=== PATIENT | male | born 1940 | race Asian ===

== ENCOUNTER 2016-09-04 18:43 | Emergency (ER) | payer OTHER ==
[~2016-09-04] VITALS: Ht 177.8 cm; Wt 59.1 kg
[2016-09-04] MEDS ORDERED: DIOVAN 40MG40 MG PO (18:57)
[2016-09-04 19:16] LABS: BASO % 0.5 % (0.0-2.0); EOS % 0.2 % (0-4.0); GRAN # 7.3 (1.4-6.5); GRAN % 83.7 % (42.2-75.2); HEMATOCRIT 39.5 % (42.0-52.0); HEMOGLOBIN 13.3 g/dl (13.5-18.0); LYMPH # 0.7 (1.2-3.4); MEAN CELL VOLUME 95 fl (80.0-100.0); MEAN CORPUSCULAR HEMOGLOBIN 32 pg (27.0-31.0); MEAN CORPUSCULAR HGB CONC 34 g/dl (33.0-37.0); MEAN PLATELET VOLUME 9.3 fl (7.4-10.4); MONO # 0.6 (0.1-0.6); MONO % 7.4 % (1.7-9.3); PLATELET COUNT 210 K/mm3 (130-400); RED BLOOD COUNT 4.17 M/mm3 (4.20-5.60); REDCELL DISTRIBUTION WIDTH-CV 13.2 % (11.5-14.5); WHITE BLOOD COUNT 8.7 K/mm3 (4.8-10.8)
[2016-09-04 19:24] LABS: INR 1.2 (0.8-3.0); PROTHROMBIN TIME 12.9 SECONDS (9.7-12.8)
[2016-09-04 19:25] LABS: PH 7 (5-8); SQUAMOUS EPITHELIAL None Seen /hpf; URINE APPEARANCE Clear; URINE BACTERIA None Seen /hpf; URINE BILIRUBIN Negative (NEGATIVE); URINE BLOOD Negative (NEGATIVE); URINE COLOR Yellow; URINE GLUCOSE 2+ (NEGATIVE); URINE KETONE Negative (NEGATIVE); URINE UROBILINOGEN Negative (NEGATIVE); URINE WBC 0-2 /hpf
[2016-09-04 19:34] LABS: ADJUSTED CALCIUM 8.5 mg/dL (8.4-10.2); ALANINE AMINOTRANSFERASE 20 U/L (21-72); ALBUMIN 4.1 gm/dL (3.5-5.0); ALKALINE PHOSPHATASE 65 U/L (50-136); ANION GAP 14 mmol/L (7-16); BILIRUBIN,TOTAL 0.8 mg/dL (0.0-1.0); BLOOD UREA NITROGEN 29 mg/dL (9-20); CALCIUM 8.6 mg/dL (8.4-10.2); CARBON DIOXIDE 25 mmol/L (22-30); CHLORIDE 100 mmol/L (98-107); CREATININE, serum 1.39 mg/dL (0.66-1.25); GLUCOSE 126 mg/dL (74-106); LIPASE 61 U/L (23-300); POTASSIUM 4.1 mmol/L (3.4-5.0); SODIUM 139 mmol/L (137-145); TOTAL PROTEIN 7.6 gm/dL (6.4-8.2)
[2016-09-04 19:36] LABS: INFLUENZA B NEGATIVE
[2016-09-04 19:45] LABS: B-TYPE NATRIURETIC PEPTIDE 1350 pg/mL (0-450); TROPONIN-I < 0.012 ng/mL (0.000-0.034)
[2016-09-04] MEDS ORDERED: LEVAQUIN 750MG750 M1 PO (20:40)
[2016-09-04 21:15] VITALS: BP 119/84; PULSE 100; TEMP 99.2
== END 2016-09-04 21:30 | disposition home or self-care (01) ==
LOC: COL.ER 18:43
PROVIDERS: Emergency Medicine
DX: R50.9 Fever, unspecified (principal); R05 Cough; R53.1 Weakness; E11.9 Type 2 diabetes mellitus without complications; I10 Essential (primary) hypertension; R00.0 Tachycardia, unspecified
CPT/HCPCS: J7030

== ENCOUNTER 2016-11-11 11:16 | Emergency (ER) | payer OTHER ==
[~2016-11-11] VITALS: Ht 177.8 cm; Wt 68.2 kg
[~2016-11-11 11:16] MED LIST: DIOVAN 40MG40 MG PO; LEVAQUIN 750MG750 M1 PO
[2016-11-11 11:26] VITALS: BP 146/73; TEMP 98.2
[2016-11-11] MEDS ORDERED: DIOVAN 80MG80 MG PO (11:56)
[2016-11-11] MEDS ORDERED: ZYRTEC 10MG10 MG PO (11:57)
[2016-11-11 12:11] LABS: BASO # 0.1 (0.0-0.2); BASO % 0.7 % (0.0-2.0); EOS # 0.2 (0.0-0.7); EOS % 1.8 % (0-4.0); GRAN # 5.7 (1.4-6.5); GRAN % 70.2 % (42.2-75.2); HEMATOCRIT 33.3 % (42.0-52.0); HEMOGLOBIN 11.1 g/dl (13.5-18.0); LYMPH # 1.4 (1.2-3.4); LYMPH % 17.5 % (20.0-51.0); MEAN CELL VOLUME 98 fl (80.0-100.0); MEAN CORPUSCULAR HEMOGLOBIN 33 pg (27.0-31.0); MEAN CORPUSCULAR HGB CONC 33 g/dl (33.0-37.0); MEAN PLATELET VOLUME 9.5 fl (7.4-10.4); MONO # 0.8 (0.1-0.6); MONO % 9.6 % (1.7-9.3); PLATELET COUNT 352 K/mm3 (130-400); RED BLOOD COUNT 3.41 M/mm3 (4.20-5.60); REDCELL DISTRIBUTION WIDTH-CV 13.5 % (11.5-14.5); WHITE BLOOD COUNT 8.1 K/mm3 (4.8-10.8)
[2016-11-11 12:25] LABS: ADJUSTED CALCIUM 8.8 mg/dL (8.4-10.2); ALBUMIN 3.6 gm/dL (3.5-5.0); BILIRUBIN,TOTAL 0.7 mg/dL (0.0-1.0); C-REACTIVE PROTEIN 2.2 mg/dL (0.0-0.9); CALCIUM 8.5 mg/dL (8.4-10.2); CREATININE, serum 1.36 mg/dL (0.66-1.25); POTASSIUM 4.3 mmol/L (3.4-5.0)
[2016-11-11 13:34] VITALS: PULSE 72
== END 2016-11-11 13:35 | disposition home or self-care (01) ==
LOC: COL.ER 11:16
PROVIDERS: Emergency Medicine
DX: G56.03 Carpal tunnel syndrome, bilateral upper limbs (principal); D64.9 Anemia, unspecified; N19 Unspecified kidney failure; E11.9 Type 2 diabetes mellitus without complications; I10 Essential (primary) hypertension

== ENCOUNTER 2016-11-11 15:03 | Emergency (ER) | payer OTHER ==
[~2016-11-11] VITALS: Ht 177.8 cm; Wt 63.6 kg
[~2016-11-11 15:03] MED LIST changes: +DIOVAN 80MG80 MG PO; +ZYRTEC 10MG10 MG PO
[2016-11-11 15:04] VITALS: TEMP 98.3
[2016-11-11 16:48] LABS: INR 1.2 (0.8-3.0); PROTHROMBIN TIME 13.5 SECONDS (9.7-12.8)
[2016-11-11 16:50] LABS: PARTIAL THROMBOPLASTIN TIME 30.9 SECONDS (26.0-37.0)
[2016-11-11 17:21] VITALS: BP 175/86; PULSE 76
== END 2016-11-11 17:24 | disposition short-term general hospital (02) ==
LOC: COL.ER 15:03
PROVIDERS: Emergency Medicine
DX: I62.00 Nontraumatic subdural hemorrhage, unspecified (principal); I10 Essential (primary) hypertension; Z87.891 Personal history of nicotine dependence
CPT/HCPCS: J7030

== ENCOUNTER → 2016-11-28 | Outpatient (CLI) | payer OTHER | LOC: COL.RAD 09:59 | DX: S06.5X0A Traumatic subdural hemorrhage without loss of consciousness, initial encounter (principal); G93.89 Other specified disorders of brain ==

== ENCOUNTER 2018-02-09 11:42 | Observation (INO) | payer MEDICARE, MEDICAID ==
[~2018-02-09] VITALS: Ht 175.3 cm; Wt 70.0 kg
[2018-02-09] MEDS ORDERED: SYNTHROID0.05 MG/TA PO (12:15)
[2018-02-09] MEDS ORDERED: NORVASC 10MG10 MG PO (12:16)
[2018-02-09 12:21] LABS: BASO # 0.1 (0.0-0.2); EOS # 0.2 (0.0-0.7); EOS % 2.2 % (0-4.0); GRAN # 4.6 (1.4-6.5); GRAN % 68.1 % (42.2-75.2); HEMATOCRIT 39.3 % (42.0-52.0); HEMOGLOBIN 13.4 g/dl (13.5-18.0); LYMPH # 1.4 (1.2-3.4); LYMPH % 21.3 % (20.0-51.0); MEAN CELL VOLUME 94 fl (80.0-100.0); MEAN CORPUSCULAR HEMOGLOBIN 32 pg (27.0-31.0); MEAN CORPUSCULAR HGB CONC 34 g/dl (33.0-37.0); MEAN PLATELET VOLUME 9.1 fl (7.4-10.4); MONO # 0.5 (0.1-0.6); MONO % 7.1 % (1.7-9.3); PLATELET COUNT 266 K/mm3 (130-400); RED BLOOD COUNT 4.17 M/mm3 (4.20-5.60); REDCELL DISTRIBUTION WIDTH-CV 13.5 % (11.5-14.5)
[2018-02-09 12:36] LABS: PROTHROMBIN TIME 11.1 SECONDS (9.7-12.8)
[2018-02-09 12:38] LABS: ALBUMIN 4.1 gm/dL (3.5-5.0); BILIRUBIN,TOTAL 0.5 mg/dL (0.0-1.0); CREATININE, serum 1.09 mg/dL (0.66-1.25); POTASSIUM 4.3 mmol/L (3.4-5.0); TOTAL PROTEIN 7.5 gm/dL (6.4-8.2)
[2018-02-09 16:49] VITALS: BP 135/77; PULSE 69; TEMP 98.5
[2018-02-09 17:00] VITALS: BP 135/77; PULSE 69; TEMP 98.5
[2018-02-09 20:00] VITALS: BP 168/82; PULSE 60; TEMP 97.6
[2018-02-10 00:53] VITALS: BP 160/70; PULSE 57
[2018-02-10 04:07] VITALS: BP 154/67; PULSE 68
[2018-02-10 07:27] LABS: CALCIUM 8.9 mg/dL (8.4-10.2); CHOLESTEROL RISK RATIO 4.2; CREATININE, serum 1.01 mg/dL (0.66-1.25); POTASSIUM 3.9 mmol/L (3.4-5.0)
[2018-02-10 07:54] VITALS: BP 155/69; PULSE 62; TEMP 97.9
[2018-02-10 08:43] LABS: THYROXINE (T4)-TOTAL 10.7 ug/dL (5.5-11.0)
[2018-02-10 08:56] LABS: THYROID STIMULATING HORMONE 1.76 uIU/mL (0.465-4.680)
[2018-02-10 12:02] VITALS: BP 157/72; PULSE 61; TEMP 97.9
[2018-02-10 15:51] VITALS: BP 154/62; PULSE 70; TEMP 97.9
[2018-02-10 19:51] VITALS: BP 146/81; PULSE 65; TEMP 98.4
[2018-02-11] VITALS (7 sets, daily range): BP systolic 135–182; BP diastolic 56–84; PULSE 59–66; TEMP 97.3–98.9
[2018-02-12 00:59] VITALS: BP 161/70
[2018-02-12 04:52] VITALS: BP 137/64; PULSE 72; TEMP 97.9
[2018-02-12 09:00] VITALS: BP 150/69; PULSE 67; TEMP 97.9
[2018-02-12 10:57] VITALS: BP 153/75; PULSE 68; TEMP 98.5
[2018-02-12] MEDS ORDERED: ASPIRIN 81M81 MG/TA2 PO (11:28)
[2018-02-12] MEDS ORDERED: LIPITOR 10MG10 MG PO (11:28)
== END 2018-02-12 15:22 | disposition home or self-care (01) ==
LOC: COL.ER 11:42 → MEDICAL 13:01
PROVIDERS: Emergency Medicine; Family Medicine; Psychiatry & Neurology Neurology
DX: I63.232 Cerebral infarction due to unspecified occlusion or stenosis of left carotid arteries (principal); G83.11 Monoplegia of lower limb affecting right dominant side; I10 Essential (primary) hypertension; I71.4 Abdominal aortic aneurysm, without rupture; E03.9 Hypothyroidism, unspecified; Z79.899 Other long term (current) drug therapy; Z86.79 Personal history of other diseases of the circulatory system
CPT/HCPCS: G0378; G8978-GP; G8979-GP; G8996-GN; G8997-GN; Q9967

== ENCOUNTER 2018-03-13 10:15 | Outpatient (RCR) | payer MEDICARE, MEDICAID ==
[~2018-03-13 10:15] MED LIST changes: +ASPIRIN 81M81 MG/TA2 PO; +LIPITOR 10MG10 MG PO; +NORVASC 10MG10 MG PO; +SYNTHROID0.05 MG/TA PO
== END 2018-03-13 10:20 | disposition home or self-care (01) ==
LOC: WSOT 10:15
DX: I69.351 Hemiplegia and hemiparesis following cerebral infarction affecting right dominant side (principal)
CPT/HCPCS: G8987-GO; G8988-GO

== ENCOUNTER 2018-03-13 10:45 | Outpatient (RCR) | payer MEDICARE, MEDICAID | END 2018-03-13 12:41 | disposition home or self-care (01) | LOC: WSPT 10:45 | DX: I69.341 Monoplegia of lower limb following cerebral infarction affecting right dominant side (principal); Z79.82 Long term (current) use of aspirin; Z79.899 Other long term (current) drug therapy | CPT/HCPCS: G8978-GP; G8979-GP ==

== ENCOUNTER 2018-05-16 16:22 | Outpatient (RCR) | payer MEDICARE, MEDICAID | END 2018-08-14 | disposition home or self-care (01) | LOC: WSST 16:22 → MKS.ESL.OT 06-01 14:30 → WSST 06-04 10:30 → MKS.ESL.PT 06-08 11:15 → WSST 06-13 10:30 → MKS.ESL.PT 06-15 09:30 → WSST 06-18 12:45 → MKS.ESL.PT 06-22 12:45 → WSST 06-28 13:45 → MKS.ESL.PT 06-29 14:30 → WSST 07-02 13:45 → MKS.ESL.PT 07-06 14:30 → WSST 07-09 11:15 → MKS.ESL.PT 07-13 13:00 → WSST 07-19 13:45 → MKS.ESL.PT 07-20 15:00 → WSST 07-26 13:00 | DX: R13.12 Dysphagia, oropharyngeal phase (principal); Z86.73 Personal history of transient ischemic attack (TIA), and cerebral infarction without residual deficits; E11.22 Type 2 diabetes mellitus with diabetic chronic kidney disease; I12.9 Hypertensive chronic kidney disease with stage 1 through stage 4 chronic kidney disease, or unspecified chronic kidney disease; N18.3 Chronic kidney disease, stage 3 (moderate); E78.5 Hyperlipidemia, unspecified ==

== ENCOUNTER → 2018-07-31 | Outpatient (CLI) | payer MEDICARE, MEDICAID | LOC: COL.RAD 07-30 15:30 | DX: I63.89 Other cerebral infarction (principal); R13.12 Dysphagia, oropharyngeal phase ==

== ENCOUNTER 2018-09-26 13:15 | Emergency (ER) | payer MEDICARE, MEDICAID ==
[~2018-09-26] VITALS: Ht 174 cm; Wt 56.8 kg
[2018-09-26 13:28] VITALS: TEMP 98.1
[2018-09-26 15:10] VITALS: BP 110/65; PULSE 70
== END 2018-09-26 15:10 | disposition home or self-care (01) ==
LOC: COL.ER 13:15
DX: K94.23 Gastrostomy malfunction (principal); Z79.82 Long term (current) use of aspirin

== ENCOUNTER 2019-03-05 13:58 | Emergency (ER) | payer MEDICARE, MEDICAID ==
[~2019-03-05] VITALS: Ht 180.3 cm; Wt 59.1 kg
[2019-03-05 14:06] VITALS: TEMP 98.6
[2019-03-05] MEDS ORDERED: COZAAR 25MG25 MG/TAB PO (14:39)
[2019-03-05] MEDS ORDERED: COREG12.5 MG PO (14:39)
[2019-03-05 15:00] VITALS: BP 186/95; PULSE 76
== END 2019-03-05 15:31 | disposition home or self-care (01) ==
LOC: COL.ER 13:58
DX: S70.01XA Contusion of right hip, initial encounter (principal); E11.9 Type 2 diabetes mellitus without complications; I10 Essential (primary) hypertension; Z95.9 Presence of cardiac and vascular implant and graft, unspecified; Z79.82 Long term (current) use of aspirin; W10.9XXA Fall (on) (from) unspecified stairs and steps, initial encounter

== ENCOUNTER → 2019-05-10 | Outpatient (CLI) | payer MEDICARE, MEDICAID ==
[~2019-05-10] MED LIST changes: +COREG12.5 MG PO; +COZAAR 25MG25 MG/TAB PO
[2019-05-10 17:14] LABS: CREATININE, serum 1.9 (0.66-1.25); POTASSIUM 5.2 mmol/L (3.4-5.0)
== END ==
LOC: COL.LAB 16:32
PROVIDERS: Nurse Practitioner Family
DX: E11.59 Type 2 diabetes mellitus with other circulatory complications (principal); I10 Essential (primary) hypertension

== ENCOUNTER → 2020-12-02 | Outpatient (CLI) | payer MEDICARE, MEDICAID | LOC: COL.RAD 09:21 | DX: I71.4 Abdominal aortic aneurysm, without rupture (principal); Z95.828 Presence of other vascular implants and grafts ==